=== PATIENT | male | born 1980 | race Caucasian/White ===

== ENCOUNTER 2016-07-08 13:32 | Emergency (ER) | payer OTHER ==
[~2016-07-08] VITALS: Ht 180.3 cm; Wt 186.9 kg
[2016-07-08 13:41] VITALS: BP 161/96
--- NOTE | 2016-07-08 13:44 | NUR ---
Patient ambulated to bed 02.
--- NOTE | 2016-07-08 13:52 | NUR ---
PATIENT PRESENTS TO ED WITH DUE TO RIGHT EAR PAIN , DRYNESS ON THROAT X 3 WEEKS . PT STATES MY FAMILY MD GAVE ME EAR DROPS AND ANTIBIOTIC AND I RUN OUT, DENIES N/V/D; SKIN IS PINK/WARM/DRY; AAOX4 WITH EVEN AND STEADY GAIT; LUNGS CLEAR BL; HR EVEN AND REGULAR; PT DENIES ANY FEVER, CP, SOB, OR COUGH AT THIS TIME; PATIENT STATES PAIN OF 4/10 AT THIS TIME; PATIENT POSITIONED FOR COMFORT; HOB ELEVATED; BEDRAILS UP X2; BED DOWN. ER MD MADE AWARE OF PT STATUS.
--- NOTE | 2016-07-08 13:54 | NUR ---
Dr. Arambula evaluating patient at bedside.
--- NOTE | 2016-07-08 13:54 | NUR ---
DR. CAMARGO AT BEDSIDE
--- NOTE | 2016-07-08 14:09 | NUR ---
DR. CAMARGO AT BEDSIDE AGAIN
--- NOTE | 2016-07-08 14:19 | NUR ---
EMT ABLE TO CLEAN RIGHT EAR WITH SMALL AMOUT OF EARWAX .Patient discharged with v/s stable. Written and verbal after care instructions given and explained. Patient verbalized understanding. Ambulatory with steady gait. All questions addressed prior to discharge. Advised to follow up with PMD.
[2016-07-08 14:20] VITALS: BP 161/96
== END 2016-07-08 14:19 | disposition home or self-care (01) ==
LOC: MED 13:32
DX: H61.21 Impacted cerumen, right ear (principal); J02.9 Acute pharyngitis, unspecified

== ENCOUNTER 2020-09-26 12:25 | Emergency (ER) | payer OTHER ==
[~2020-09-26] VITALS: Ht 180.3 cm; Wt 238.1 kg
[2020-09-26 12:31] VITALS: BP 160/88
--- NOTE | 2020-09-26 12:35 | NUR ---
Pt ambulated to ER bed 12 with a steady gait.
--- NOTE | 2020-09-26 12:41 | NUR ---
40 Y/O MALE C/O LEFT CALF PAIN 03/08 DESCRIBES BURNING/ACHING X3DAYS. PT STATES PAIN IS WORSE WHEN AMBULATING, TOOK TYNENOL WITH MINIMAL RELIEF. AREA IS WARM TO TOUCH, ERYHTEMA NOTED, TENDER ON PALPATION, DORSAL PEDAL PULSE IS WEAK. PT DENIES N/V, DENIES FEVER/CHILLS. PMH: HTN, DM NKA
--- NOTE | 2020-09-26 12:51 | NUR ---
Dr. Rincon at pt bedside for further evaluation.
--- NOTE | 2020-09-26 13:02 | NUR ---
natural resource technician at pt bedside.
--- NOTE | 2020-09-26 13:32 | NUR ---
US at pt bedside.
[2020-09-26] MEDS ORDERED: CEPH-588 PO (15:16)
[2020-09-26 15:50] VITALS: BP 150/80
--- NOTE | 2020-09-26 15:50 | NUR ---
Patient discharged with v/s stable. Written and verbal after care instructions given and explained. Patient alert, oriented and verbalized understanding of instructions. Ambulatory with steady gait. All questions addressed prior to discharge. ID band removed. Patient advised to follow up with PMD. Rx of Keflex 500mg given and sent to [facility]. Patient educated on indication of medication including possible reaction and side effects. Opportunity to ask questions provided and answered.
== END 2020-09-26 15:50 | disposition home or self-care (01) ==
LOC: MED 12:25
DX: L03.116 Cellulitis of left lower limb (principal)
CPT/HCPCS: 73590; 73610; 93971; 99284

== ENCOUNTER 2021-03-03 17:00 | Emergency (ER) | payer OTHER ==
[~2021-03-03] VITALS: Ht 180.3 cm; Wt 207.7 kg
[~2021-03-03 17:00] MED LIST: CEPH-588 PO
[2021-03-03 17:19] VITALS: BP 201/120
[2021-03-03] MEDS: LIDOCAINE MPF 1% 10 MG/ML VIAL INJ ONE (18:34)
[2021-03-03] MEDS: FLUORESCEIN OPTH STRIP 1 MG OP ONE (18:34)
[2021-03-03] MEDS: TETRACAINE 1% 2 ML AMP INJ ONE (18:53)
[2021-03-03] MEDS: TETRACAINE HCL/PF 0.5% OPTH 4 ML BTL OP ONE (18:55)
[2021-03-03] MEDS ORDERED: TOMOMETER 1 DEV DEV MC ONE (19:45)
[2021-03-03] MEDS ORDERED: LIDOCAINE MPF 1% 10 ML ONE (20:36)
[2021-03-03] MEDS ORDERED: LIDOCAINE 2% 1000 MG/50 ML VIAL INJ ONE (21:45)
[2021-03-03] MEDS: LIDOCAINE/EPI MPF 2%1:200000 10 ML VIAL INJ ONE (21:50)
[2021-03-03] MEDS ORDERED: LIDOCAINE/EPI 2% 1:100000 20 ML VIAL INJ ONE (22:01)
[2021-03-03 23:27] VITALS: BP 156/80
== END 2021-03-03 23:27 | disposition short-term general hospital (02) ==
LOC: MED 17:00
DX: S01.111A Laceration without foreign body of right eyelid and periocular area, initial encounter (principal); S01.21XA Laceration without foreign body of nose, initial encounter; T79.A9XA Traumatic compartment syndrome of other sites, initial encounter; S80.211A Abrasion, right knee, initial encounter; H61.23 Impacted cerumen, bilateral; E11.9 Type 2 diabetes mellitus without complications; I10 Essential (primary) hypertension; Z79.2 Long term (current) use of antibiotics; W01.198A Fall on same level from slipping, tripping and stumbling with subsequent striking against other object, initial encounter; Y92.89 Other specified places as the place of occurrence of the external cause; Y93.89 Activity, other specified; Y99.8 Other external cause status
CPT/HCPCS: 12014; 99291; J2001; J3490

== ENCOUNTER 2022-02-10 08:50 | Emergency (ER) | payer OTHER ==
[~2022-02-10] VITALS: Ht 180.3 cm; Wt 258.3 kg
--- NOTE | 2022-02-10 09:00 | NUR ---
PT AMB TO ER BED 1 BIB SELF C/O BILAT TESTICULAR PAIN/SWEELING X 3-4 DAYS, NEG TRAUMA. PT DENIES N/V/D; SKIN IS INTACT, PINK/WARM/DRY; AAOX4, PERRL, WITH EVEN AND STEADY GAIT; LUNGS CLEAR BL, BREATHING UNLABORED; HR EVEN AND REGULAR, BL PERIPHERAL PULSES PRESENT; BS ACTIVE X4, NO TENDERNESS TO PALPATION. PT DENIES ANY FEVER, CP, SOB AT THIS TIME; PT STATES 7/10 PAIN AT THIS TIME; VSS; PATIENT POSITIONED FOR COMFORT; HOB ELEVATED; BEDRAILS UP X2; BED DOWN.
[2022-02-10 09:06] VITALS: BP 200/81
[2022-02-10] MEDS ORDERED: METF-346 PO (09:19)
[2022-02-10] MEDS ORDERED: LISI5TAB18 PO (09:19)
[2022-02-10] MEDS ORDERED: CEPH-588 PO (09:54)
[2022-02-10 10:08] VITALS: BP 145/73
== END 2022-02-10 10:08 | disposition home or self-care (01) ==
LOC: EDSEX → MED 08:50
DX: N50.89 Other specified disorders of the male genital organs (principal); E11.9 Type 2 diabetes mellitus without complications; I10 Essential (primary) hypertension; Z79.899 Other long term (current) drug therapy; Z79.84 Long term (current) use of oral hypoglycemic drugs
CPT/HCPCS: 99283

== ENCOUNTER 2022-02-15 09:52 | Emergency (ER) | payer OTHER ==
[~2022-02-15] VITALS: Ht 180.3 cm; Wt 258.1 kg
[~2022-02-15 09:52] MED LIST changes: +LISI5TAB18 PO; +METF-346 PO
[2022-02-15 10:01] VITALS: BP 154/95
--- NOTE | 2022-02-15 10:49 | NUR ---
41 Y/O MALE BIB SELF C/O TESTICULAR/SCROTAL SWELLING AND PAIN. PER PT HE WAS SEEN IN ED 1 WEEK AGO AND GIVEN RX OF KEFLEX, FULL DOSE TAKEN WITH NO CHANGE IN CONDITION. STATES THAT AREA FEELS COLD AND TENDER TO TOUCH, DENIES ANY URINARY S/S, DENIES ANY DISCHARGE, ABD PAIN, N/V/D. pmh: htn, dm2, arthritis left knee nka med: cephalexin (infection)
--- NOTE | 2022-02-15 11:00 | NUR ---
DR MCGEE AT BEDSIDE FOR EVAL
--- NOTE | 2022-02-15 11:47 | NUR ---
PT AMBULATED TO BATHROOM
[2022-02-15 12:09] LABS: BASOPHILS # (AUTO) 0.1 K/uL (0.00-0.22); BASOPHILS % (AUTO) 0.7 % (0.0-2.0); EOSINOPHILS # (AUTO) 0.3 K/uL (0-0.4); EOSINOPHILS % (AUTO) 2.4 % (0.0-4.0); HEMATOCRIT 41.7 % (36-52); HEMOGLOBIN 13.7 g/dL (12.0-18.0); LYMPHOCYTES # (AUTO) 1.7 K/uL (2.0-11.5); LYMPHOCYTES % (AUTO) 14.6 % (20.5-51.1); MEAN CORPUSCULAR HEMOGLOBIN 28 pg (27-31); MEAN CORPUSCULAR HGB CONC 33 g/dL (33-37); MEAN CORPUSCULAR VOLUME 85.9 fL (80-94); MONOCYTES # (AUTO) 0.8 K/uL (0.8-1.0); MONOCYTES % (AUTO) 6.7 % (1.7-9.3); NEUTROPHILS # (AUTO) 8.7 K/uL (1.8-7.7); NEUTROPHILS % (AUTO) 75.6 % (42.2-75.2); PLATELET COUNT (AUTO) 281 K/uL (140-450); RED BLOOD CELL COUNT(AUTO) 4.85 MIL/uL (4.20-6.10); RED CELL DISTRIBUTION WIDTH 14.9 % (11.6-13.7); WHITE BLOOD COUNT (AUTO) 11.5 K/uL (4.8-10.8)
--- NOTE | 2022-02-15 12:16 | NUR ---
US AT BEDSIDE
[2022-02-15 13:04] LABS: ALBUMIN 3.4 g/dL (3.4-5.0); ANION GAP 13.3 (8-16); CARBON DIOXIDE 28.5 mmol/L (21-32); CREATININE 0.8 mg/dL (0.6-1.3); POTASSIUM 4.8 mmol/L (3.5-5.1); TOTAL BILIRUBIN 0.6 mg/dL (0.0-1.0)
[2022-02-15] MEDS ORDERED: DOXY-487 PO (13:32)
[2022-02-15] MEDS ORDERED: FURO-572 PO (13:32)
[2022-02-15] MEDS ORDERED: ACET-8386 PO (13:33)
[2022-02-15] MEDS: HYDROcodone/APAP 5/325 MG 1 TAB TAB PO ONE (13:41)
[2022-02-15 13:57] VITALS: BP 141/58
--- NOTE | 2022-02-15 13:57 | NUR ---
Patient discharged with v/s stable. Written and verbal after care instructions given and explained. Patient alert, oriented and verbalized understanding of instructions. Ambulatory with steady gait. All questions addressed prior to discharge. ID band removed. Patient advised to follow up with PMD. Rx of NORCO 5-325, DOXYCYLCINE HYCLATE, LASIX given. Patient educated on indication of medication including possible reaction and side effects. Opportunity to ask questions provided and answered.
== END 2022-02-15 13:57 | disposition home or self-care (01) ==
LOC: EDSEX 09:52 → MED 09:52
DX: N45.1 Epididymitis (principal); E11.9 Type 2 diabetes mellitus without complications; I10 Essential (primary) hypertension; Z79.84 Long term (current) use of oral hypoglycemic drugs; Z79.899 Other long term (current) drug therapy
CPT/HCPCS: 36415; 76870; 80053; 85025; 99284; Q0092